=== PATIENT | female | born 1990 | race Two or more races ===

== ENCOUNTER 2017-08-23 17:58 | Emergency (ER) | payer MEDICAID ==
[~2017-08-23] VITALS: Ht 157.5 cm; Wt 47.6 kg
[2017-08-23 18:15] VITALS: BP 147/86
[2017-08-23] MEDS ORDERED: IBUPROFEN 600 MG TAB PO ONE (22:45)
[2017-08-23] MEDS ORDERED: CYCLOBENZAPRINE HCL 10 MG TAB PO ONE (22:45)
== END 2017-08-24 00:04 | disposition home or self-care (01) ==
LOC: ER 17:58 → EDBD 17:58 → ER 23:58
DX: S66.911A Strain of unspecified muscle, fascia and tendon at wrist and hand level, right hand, initial encounter (principal); S80.11XA Contusion of right lower leg, initial encounter; Z88.1 Allergy status to other antibiotic agents; V49.40XA Driver injured in collision with unspecified motor vehicles in traffic accident, initial encounter; Y93.89 Activity, other specified; Y92.89 Other specified places as the place of occurrence of the external cause; Y99.8 Other external cause status